=== PATIENT | female | born 1975 | race African-American/Black ===

== ENCOUNTER → 2017-02-12 | Outpatient (CLI) | payer OTHER ==
[~2017-02-12] MED LIST: ANTACID; ATENOLOL; BYSTOLIC10 MG PO
--- NOTE | ~2017-02-12 | HM ---
Unit #: [id number] #: [id number] Patient: SHERIE RICARDO [id number] [address] [place], [place] [address] [id number] O MR#: [id number] NAME: SHERIE RICARDO : 1975 SEX: F STUDY DATE/TIME: UNIT: [facility] ROOM: STUDY DESCRIPTION: Holter Monitor Attending Physician: Mimi Henson M.D. Referring Physician: Mimi Henson M.D. Primary Care Physician: Mimi Henson M.D. CARDIOLOGY REPORT EXAM Holter Monitor DATE APPLIED 02/12/2017 DATE SCANNED 02/16/2017 ORDERED BY Mimi Henson M.D. READ BY Karsten Rivera M.D. INDICATION Palpitations. SUMMARY The patient was monitored for 24 hours. A total of 119,525 QRS complexes were analyzed. The average heart rate was 83 beats per minute. The rhythm was sinus. The minimum heart rate of 56 beats per minute occurred at 5:55 a.m. Maximum heart rate 126 beats per minute occurred at approximately 3:15 p.m. There were no pauses. Supraventricular Ectopy: 11 isolated beats with no runs. Ventricular Ectopy: 1625 isolated beats with seven runs. These were computer identified, and actually were representing sinus rhythm. Symptoms: Patient experienced palpitations while sitting. PVCs were noted. This occurred at approximately 6 p.m. and approximately 1 p.m. IMPRESSION 1. Frequent PVCs, some of which are symptomatic. 2. Rare supraventricular ectopy. 3. No complex ectopy is noted. 4. No pauses are noted. 5. Ventricular ectopy as identified is benign. Unit #: [id number] #: [id number] Patient: SHERIE RICARDO Dictated by... Yoni Telles/hubert TD: 02/18/2017 11:15 JOB #: [id number] CARDIOLOGY REPORT Page 1 of 1 X Karsten Rivera MD HOLTER MONITOR REPORT
== END | disposition home or self-care (01) ==
LOC: CEKG 12:50
DX: R00.2 Palpitations (principal)
CPT/HCPCS: 93225; 93226

== ENCOUNTER → 2017-02-19 | Outpatient (CLI) | payer OTHER ==
--- NOTE | ~2017-02-19 | MY6 ---
[facility] A Service of [facility] RADIOLOGY TEXT RESULTS PATIENT: SHERIE RICARDO LOCATION: [facility] : 75 UNIT #: [id number] AGE: [address]: Mimi Henson MD SEX: F ORDER DR: [id number] [facility] [address] [facility] [place], [place] [address] [id number] O MR#: [id number] Acc #: [id number] NAME: SHERIE RICARDO : 1975 SEX: F STUDY DATE/TIME: 02/19/2017 13:08 UNIT: [facility] ROOM: STUDY DESCRIPTION: MY Mammogram Dx Dig [place] Attending Physician: Mimi Henson M.D. Ordering Physician: Mimi Henson M.D. Primary Care Physician: Mimi Henson M.D. MEDICAL IMAGING REPORT This report is preliminary unless electronic signature is present EXAM Diagnostic mammogram. DATE OF EXAM 02/19/2017 INDICATIONS 41-year-old with no personal or family history of breast cancer. She reports intermittent areas of tenderness and nodularity in the upper/outer left breast chronically. TECHNIQUE Multiple digital diagnostic CC and MLO views were obtained of both breasts. The study is reviewed with an FDA-approved CAD device. COMPARISON Comparison made with 08/16/2015, and 08/29/2013. FINDINGS Breast parenchyma shows scattered fibroglandular densities. No new masses or suspicious microcalcifications are seen. Ultrasound was performed of the upper/outer left breast in the area of concern indicated by the patient. Ultrasound demonstrates only a 4 mm simple cyst at the 1 o'clock position about 6 cm from the nipple. This is likely not palpable. The rest the ultrasound is normal. Findings were discussed with the patient at the time of her examination today. IMPRESSION Negative bilateral mammogram with a benign targeted ultrasound of the left breast. Continued clinical followup of any palpable abnormality [facility] A Service [facility] RADIOLOGY TEXT RESULTS PATIENT: SHERIE RICARDO LOCATION: [facility] : 75 UNIT #: [id number] AGE: [address]: Mimi Henson MD SEX: F ORDER DR: recommended. Otherwise, routine yearly mammographic screening recommended. Patients over the age of 40 are entered into a reminder system with target due date for the next mammogram. A result letter will also be sent to the patient. BIRADS: 2 Benign findings. Dictated by... Michael Contreras Jr., M.D. THIS IS AN ELECTRONICALLY VERIFIED REPORT Michael Contreras Jr., M.D. at 02/19/2017 4:31 PM GLENN/maura TD: 02/19/2017 15:59 JOB #: [id number] MEDICAL IMAGING REPORT Page 1 of 1 COPY
--- NOTE | ~2017-02-19 | US24 ---
[facility] A Service of [facility] & [facility] RADIOLOGY TEXT RESULTS PATIENT: SHERIE RICARDO LOCATION: [facility] : 75 UNIT #: [id number] AGE: [address]: Mimi Henson MD SEX: F ORDER DR: [id number] [facility] [address] [facility]. [place], [place] [address] [id number] O MR#: [id number] Acc #: [id number] NAME: SHERIE RICARDO : 1975 SEX: F STUDY DATE/TIME: 02/19/2017 13:53 UNIT: [facility] ROOM: STUDY DESCRIPTION: US Breast Unilateral Attending Physician: Mimi Henson M.D. Ordering Physician: Mimi Henson M.D. Primary Care Physician: Mimi Henson M.D. MEDICAL IMAGING REPORT This report is preliminary unless electronic signature is present EXAM Left breast ultrasound 02/19 INDICATIONS Patient reports intermittent pain with nodularity in the upper outer left breast. FINDINGS For a full report, please see the mammogram report dated 02/19/2017. BIRADS: 2 Benign findings.. Dictated by... Michael Contreras Jr., M.D. THIS IS AN ELECTRONICALLY VERIFIED REPORT Michael Contreras Jr., M.D. at 02/19/2017 4:31 PM RLK/to TD: 02/19/2017 15:35 JOB #: [id number] MEDICAL IMAGING REPORT Page 1 of 1 COPY
== END | disposition home or self-care (01) ==
LOC: CMAM 12:27
DX: N64.4 Mastodynia (principal); N60.19 Diffuse cystic mastopathy of unspecified breast
CPT/HCPCS: 76641; G0204

== ENCOUNTER → 2017-06-26 | Outpatient (CLI) | payer OTHER ==
--- NOTE | ~2017-06-26 | US85 ---
[facility] A Service of [facility] RADIOLOGY TEXT RESULTS PATIENT: SHERIE RICARDO LOCATION: [facility] : 75 UNIT #: [id number] AGE: [address]: Mimi Henson MD SEX: F ORDER DR: [id number] [facility] [address] [place], [place] [address] [id number] O MR#: [id number] Acc #: [id number] NAME: SHERIE RICARDO : 1975 SEX: F STUDY DATE/TIME: 06/26/2017 10:18 UNIT: [facility] ROOM: STUDY DESCRIPTION: [facility]ins Unilat or [facility] St[facility] Attending Physician: Mimi Henson M.D. Referring Physician: Mimi Henson M.D. Ordering Physician: Mimi Henson M.D. Primary Care Physician: Mimi Henson M.D. MEDICAL IMAGING REPORT This report is preliminary unless electronic signature is present DATE OF EXAMINATION 06/26/2017 EXAM Right lower extremity venous Doppler. HISTORY Right leg pain and swelling. FINDINGS The right common femoral vein, femoral vein, popliteal vein, tibial veins demonstrate patency and compressibility. There is phasic and spontaneous flow with respiration and augmentation. Proximal and distal greater saphenous vein is patent and compressible. IMPRESSION No evidence of right lower extremity deep venous thrombosis. Dictated by... Rodrigo Emmanuel M.D. THIS IS AN ELECTRONICALLY VERIFIED REPORT Rodrigo Emmanuel M.D. at 06/29/2017 11:04 AM GIANFRANCO/yadira TD: 06/26/2017 15:53 JOB #: [id number] MEDICAL IMAGING REPORT Page 1 of 1 COPY
--- NOTE | ~2017-06-26 | CR173 ---
[facility] A Service of [facility] RADIOLOGY TEXT RESULTS PATIENT: SHERIE RICARDO LOCATION: [facility] : 75 UNIT #: [id number] AGE: [address]: Mimi Henson MD SEX: F ORDER DR: [id number] [facility] [address] [place] [facility]. [place], [place] [address] [id number] O MR#: [id number] Acc #: [id number] NAME: SHERIE RICARDO : 1975 SEX: F STUDY DATE/TIME: 06/26/2017 9:21 UNIT: [facility] ROOM: STUDY DESCRIPTION: CR Knee 3 Views Rt Attending Physician: Mimi Henson M.D. Referring Physician: Mimi Henson M.D. Ordering Physician: Mimi Henson M.D. Primary Care Physician: Mimi Henson M.D. MEDICAL IMAGING REPORT This report is preliminary unless electronic signature is present EXAM Right knee 3 views 06/26/2017 HISTORY Right knee pain and swelling for 1.5 weeks after a long flight. Osteoarthritis right knee FINDINGS Three views of the right knee demonstrate no fracture. There is degenerative change with narrowing of the medial and lateral compartments of the knee. and there is osteophytic spurring extending off the femoral condyles, the tibial plateau and the posterior aspect of the patella. The bones are normally mineralized. There is no joint effusion. IMPRESSION Degenerative change about the right knee. No acute abnormality. Dictated by... Kong Rasheed M.D. THIS IS AN ELECTRONICALLY VERIFIED REPORT Kong Rasheed M.D. at 06/26/2017 5:54 PM RAVI/sandeep TD: 06/26/2017 12:05 JOB #: [id number] MEDICAL IMAGING REPORT Page 1 of 1 COPY
== END | disposition home or self-care (01) ==
LOC: CNIV 08:46
DX: M79.604 Pain in right leg (principal); M79.89 Other specified soft tissue disorders; M17.11 Unilateral primary osteoarthritis, right knee
CPT/HCPCS: 73562; 93971